=== PATIENT | male | born 1985 | race Caucasian/White ===

== ENCOUNTER 2017-02-22 14:00 | Inpatient (IN) | payer OTHER ==
[~2017-02-22] VITALS: Ht 172.7 cm; Wt 62.1 kg
--- NOTE | ~2017-02-22 | HP ---
Unit #: [id number] #: [id number] Patient: RIOS ALLAN [id number] [place] [address] [id number] I MR#: [id number] NAME: RIOS ALLAN. ROOM: P106 Age: 31 Sex: M Admission Date: 02/22/2017 : 1985 Attending Physician: Raúl Ravi M.D. Admitting Physician: Raúl Ravi M.D. Primary Care Physician: Generic Doctor Not In System HISTORY AND PHYSICAL HISTORY OF PRESENT ILLNESS Rios is a 31-year-old male admitted to [address] [place] [address] because of his polysubstance abuse which includes alcohol, cocaine and methamphetamine. PAST MEDICAL HISTORY 1. Long history of illicit substance abuse to include methamphetamine, cocaine and heroin. 2. Hepatitis C. 3. Positive HIV. 4. Seizure disorder. 5. Patient has been on female hormones for some time. PAST SURGICAL HISTORY Nothing reported. ALLERGIES Haldol. SOCIAL HISTORY He smokes 1 pack per day. Drinks alcohol. Admits to a history of illicit substance abuse to include opioids, amphetamines, heroin and huffing. FAMILY HISTORY Medically noncontributory. REVIEW OF SYSTEMS He refuses to answer any questions. There are no reports of nausea, vomiting or diarrhea. He has had no cough or increased temperature. CURRENT MEDICATIONS 1. Detox protocol. 2. Celexa 20 mg daily. 3. Depakote 250 mg b.i.d. 4. Nicotine patch 14 mg daily. 5. Minipress 2 mg q.h.s. 6. Desyrel 50 mg q.h.s. 7. Spironolactone 50 mg b.i.d. 8. Vistaril p.r.n. 9. Milk of Magnesia p.r.n. 10. Maalox p.r.n. 11. Tylenol p.r.n. 12. Estrace 4 mg daily. Unit #: [id number] #: [id number] Patient: RIOS ALLAN PHYSICAL EXAMINATION GENERAL: Alert, very effeminate appearing man, no apparent distress. VITAL SIGNS: Blood pressure 140/88, heart rate 100, respirations 16, temperature 98.6. WEIGHT: 137. HEIGHT: 5 feet 8 inches. SKIN: Warm and dry without rash or lesion. HEENT: Normocephalic. TMs not viewed. Oral and nasal passages clear. Conjunctivae clear. PERRLA. EOMs intact. NECK: Supple without lymphadenopathy or thyromegaly. HEART: Regular rate and rhythm without murmur. LUNGS: Clear. ABDOMEN: Soft, nontender. : Not done. EXTREMITIES: No evidence of cyanosis, clubbing or edema. Moves all without focal deficit. NEUROLOGICAL: Unable to complete extended exam. He does move all extremities without focal deficit. Hand entry level account representative is equal and gait is normal. IMPRESSION 1. Psychiatric admission. 2. Male who has been taking female hormones for some time. 3. Seizure disorder. 4. Patient reports that he is positive hepatitis C and HIV (?). RECOMMENDATIONS PSYCHIATRIC: Per psychiatrist. MEDICAL: 1. See no contraindication to participate in facility's activities. 2. We are screening him for HIV. MEDICAL PROGNOSIS Good in the short term. MEDICAL CONDITION Stable. Dictated by... Freya Mcmillan P.A.-C. for Eun Quarles/ora TD: 02/23/2017 15:34 JOB #: [id number] Unit #: [id number] #: [id number] Patient: RIOS ALLAN HISTORY AND PHYSICAL Page 1 of 1 X Freya Mcmillan HISTORY AND PHYSICAL
--- NOTE | ~2017-02-22 | PN ---
Unit #: [id number] #: [id number] Patient: RIOS ALLAN [id number] [facility] [address] [place] [address] [id number] MR#: [id number] NAME: RIOS ALLAN. ROOM: P106 Age: 31 Sex: M Admission Date: 02/22/2017 : 1985 Attending Physician: Raúl Ravi M.D. Admitting Physician: Raúl Ravi M.D. Primary Care Physician: Generic Doctor Not In System [facility] PROGRESS NOTES DATE 02/24/2017 DISCUSSION Rios required another episode of seclusion and restraint this morning. She also continues to complain of medication side effects and says that she "fights because I don't know what else to do." She is alert and fully oriented with an irritable and explosive mood. Memory and concentration are poor. Thought processes are nonpsychotic. ASSESSMENT 1. Posttraumatic stress disorder, chronic. 2. Major depression. IMPRESSION AND PLAN We will continue current medications and monitor for response. The patient will continue to receive emergency treatments as indicated. Dictated by... Eun MinayaH/bztyesha TD: 02/24/2017 11:05 JOB #: [id number] [facility] PROGRESS NOTES Page 1 of 1 X Raúl Ravi MD PROGRESS NOTE
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
[2017-02-24 12:24] LABS: BASOPHIL# 0.1 X10e3 (0-0.3); BASOPHIL% 0.8 % (0-2.5); EOSINOPHIL# 0.1 X10e3 (0-0.7); EOSINOPHIL% 1.2 % (0.0-7.0); HEMATOCRIT 44.9 % (38.0-50.0); HEMOGLOBIN 15.1 gm/dL (13.0-16.0); LYMPHOCYTE# 1.8 X10e3 (1.0-3.5); MEAN CELL VOLUME 94.5 FL (83-96); MEAN CORPUSCULAR HEMOGLOBIN 31.7 PG (28-34); MEAN CORPUSCULAR HGB CONC 33.5 g/dL (30-36); MEAN PLATELET VOLUME 7.9 FL (6.5-11.5); MONOCYTE# 0.8 X10e3 (0-1.0); MONOCYTE% 12.5 % (3.0-12.0); NEUTROPHIL# 3.6 X10e3 (1.5-7.1); NEUTROPHIL% 57.5 % (40-75); PLATELET COUNT 354 X10e3 (140-420); RED BLOOD COUNT 4.75 X10e (3.90-5.60); RED CELL DISTRIBUTION WIDTH 14.3 % (11.0-15.5); WHITE BLOOD COUNT 6.3 X10e3 (4.0-10.5)
[2017-02-24 12:25] LABS: DIFF IND NO
[2017-02-24 12:42] LABS: BILIRUBIN,TOTAL 0.8 mg/dL (0.2-2.0); BUN/CREATININE RATIO 16.25; CALCIUM SERUM 9.6 mg/dL (8.4-10.2); CREATININE SERUM 0.8 mg/dL (0.6-1.4); GLOM FILT RATE Estimated 118.2 mL/min (>60); POTASSIUM 4.3 mmol/L (3.5-5.1); PROTEIN TOTAL SERUM 7.5 g/dL (6.0-8.3)
[2017-02-27 15:14] LABS: HIV1 LOG COPIES/ML <1.30 (<1.30); HIV1COPIES/ML <20 (<20)
== END 2017-02-25 15:08 | disposition home or self-care (01) | DRG 882 ==
LOC: P1S 17:04
PROVIDERS: Psychiatry & Neurology Psychiatry
DX: F43.12 Post-traumatic stress disorder, chronic (principal); F32.9 Major depressive disorder, single episode, unspecified; F60.3 Borderline personality disorder; F64.8 Other gender identity disorders
CPT/HCPCS: 80053; 85025; 87536; J2060; J3486